=== PATIENT | male | born 1940 | race Caucasian/White ===

== ENCOUNTER → 2017-08-20 | Outpatient (CLI) | payer OTHER ==
[~2017-08-20] MED LIST: GADOBUTROL 7.5 MMOL/7.5 ML PFS ONE
== END | disposition home or self-care (01) ==
LOC: RAD 17:12
PROVIDERS: ATTEND Family Medicine
DX: I61.2 Nontraumatic intracerebral hemorrhage in hemisphere, unspecified (principal); D49.6 Neoplasm of unspecified behavior of brain
CPT/HCPCS: 70553; A9585

== ENCOUNTER 2017-08-22 11:04 | Inpatient (IN) | payer OTHER ==
[~2017-08-22] VITALS: Ht 167.6 cm; Wt 67.1 kg
[2017-08-22] MEDS ORDERED: SODIUM CHLORIDE 0.9% 1,000 ML IV ONE (11:21)
[2017-08-22] MEDS ORDERED: SODIUM CHLORIDE FLUSH 10ML SYR IVF ONE (11:30)
[2017-08-22] MEDS ORDERED: OMEP-110 PO (11:46)
[2017-08-22] MEDS ORDERED: GABA600T2 PO (11:46)
[2017-08-22] MEDS ORDERED: APIX5TAB PO (11:46)
[2017-08-22] MEDS ORDERED: METO25TA35 PO (11:46)
[2017-08-22] MEDS ORDERED: METO10TA2 PO (11:46)
[2017-08-22] MEDS ORDERED: PROP150T2 PO (11:59)
[2017-08-22] MEDS ORDERED: ROPI0.2537 PO (11:59)
[2017-08-22] MEDS ORDERED: ATOR-2 PO (11:59)
[2017-08-22] MEDS ORDERED: BACL20TA PO (12:00)
[2017-08-22] MEDS ORDERED: CARB25TA2 PO (12:00)
[2017-08-22] MEDS ORDERED: AMAN100C7 PO (12:00)
[2017-08-22] MEDS ORDERED: FINA5TAB4 PO (12:00)
[2017-08-22] MEDS ORDERED: TERA1CAP3 PO (12:00)
[2017-08-22 12:12] LABS: BASOPHILS # (AUTO) 0.02 x10^3/uL (0-0.1); BASOPHILS % (AUTO) 0 % (0-1); EOSINOPHILS % (AUTO) 1 % (1-7); LYMPHOCYTES # (AUTO) 1.11 x10^3/uL (1-3.4); LYMPHOCYTES % (AUTO) 15 % (22-44); MD NO; MEAN CORPUSCULAR HEMOGLOBIN 29.7 pg (27.5-34.5); MEAN CORPUSCULAR VOLUME 89.9 fL (81-97); MEAN PLATELET VOLUME 8.7 fL (7.4-10.4); MONOCYTES # (AUTO) 0.58 x10^3/uL (0.2-0.8); MONOCYTES % (AUTO) 8 % (2-9); NEUTROPHILS # (AUTO) 5.59 x10^3/uL (1.8-6.8); NEUTROPHILS % (AUTO) 76 % (42-75); PLATELET COUNT 185 x10^3/uL (130-400); RED BLOOD COUNT 4.15 x10^6/uL (4.38-5.82); RED CELL DISTRIBUTION WIDTH 14.6 % (9.4-14.8)
[2017-08-22 12:22] LABS: ALBUMIN 3.6 g/dL (3.4-5.0); ANION GAP 6 mmol/L (5-15); CALCIUM 8.8 mg/dL (8.5-10.1); CHLORIDE 113 mmol/L (98-107)
[2017-08-22] MEDS ORDERED: CARBIDOPA/LEVODOPA 25 MG/100 MG TABLET PO ONE (12:30)
[2017-08-22 12:43] LABS: ACETONE, SERUM Trace (10mg/dL) mg/dL (Negative)
[2017-08-22 12:50] LABS: % IRON SATURATION 28 % (20-55); ALKALINE PHOSPHATASE 92 U/L (45-117); BILIRUBIN,TOTAL 1.7 mg/dL (0.2-1.0); CREATININE 1.16 mg/dL (0.7-1.3); FOLATE LEVEL 12.4 ng/mL (3.1-17.5); IRON LEVEL 76 mcg/dL (65-175); T4 (THYROXINE) 14.8 mcg/dL (4.5-12.1); THYROID STIMULATING HORMONE 0.737 mIU/L (0.358-3.740); TOTAL IRON BINDING CAPACITY 269 mcg/dL (250-450); TOTAL PROTEIN 7.1 g/dL (6.4-8.2)
[2017-08-22 13:14] LABS: ALANINE AMINOTRANSFERASE < 6 U/L (12-78)
[2017-08-22 14:00] VITALS: BP 130/87
[2017-08-22] MEDS ORDERED: ACETAMINOPHEN 325 MG TABLET PO PRN (14:30)
[2017-08-22] MEDS ORDERED: HYDROcodone/APAP 5/325 TABLET PO PRN (14:30)
[2017-08-22] MEDS ORDERED: morphine SULFATE 10 MG/ML, 1ML IVPush PRN (14:30)
[2017-08-22] MEDS ORDERED: hydrALAzine 20 MG/ML, 1ML IVPush PRN (14:30)
[2017-08-22] MEDS ORDERED: ONDANSETRON 2MG/ML, 2ML IVPush PRN (14:30)
[2017-08-22] MEDS ORDERED: CARBIDOPA 50 MG PO SCH (16:00)
[2017-08-22] MEDS ORDERED: GADOBUTROL 7.5 MMOL/7.5 ML PFS ONE (16:20)
[2017-08-22] MEDS: BACLOFEN 10 MG TABLET PO SCH ×2 (17:30→20:59)
[2017-08-22] MEDS: GABAPENTIN 300 MG CAPSULE PO SCH ×2 (17:30→21:00)
[2017-08-22] MEDS: SODIUM CHLORIDE 0.9% 1,000 ML IV SCH (17:30)
[2017-08-22] MEDS ORDERED: CARB1TAB44 PO (18:12)
[2017-08-22] MEDS: ROPINIROLE 0.25MG TABLET PO SCH ×2 (18:34→21:15)
[2017-08-22 19:38] LABS: MICROSCOPIC NOT IND
[2017-08-22 19:50] LABS: CULTURE INDICATED? NO
[2017-08-22 20:03] VITALS: BP 118/76
[2017-08-22 20:31] VITALS: BP 130/87
[2017-08-22] MEDS: CARBIDOPA/LEVODOPA CR 50 MG/200 MG TABLET PO SCH ×2 (20:58→21:07)
[2017-08-22] MEDS: METOPROLOL TARTRATE 25 MG TABLET PO SCH (20:59)
[2017-08-22] MEDS: APIXABAN 5 MG TABLET PO SCH (20:59)
[2017-08-22] MEDS: ATORVASTATIN 40 MG TABLET PO SCH (20:59)
[2017-08-22] MEDS: AMANTADINE 100 MG CAPSULE PO SCH (21:00)
[2017-08-22] MEDS: PROPAFENONE 150 MG TABLET PO SCH (21:00)
[2017-08-22] MEDS: OMEPRAZOLE 20 MG CAPSULE.DR PO SCH (21:00)
[2017-08-22 23:07] LABS: TROPONIN I < 0.015 ng/mL (0.000-0.045)
[2017-08-23 00:21] VITALS: BP 123/82
[2017-08-23] MEDS: SODIUM CHLORIDE 0.9% 1,000 ML IV SCH ×2 (04:07→14:40)
[2017-08-23] MEDS: BACLOFEN 10 MG TABLET PO SCH ×4 (04:10→22:19)
[2017-08-23] MEDS: CARBIDOPA/LEVODOPA CR 50 MG/200 MG TABLET PO SCH ×5 (04:10→22:17)
[2017-08-23 05:34] LABS: BASOPHILS # (AUTO) 0.01 x10^3/uL (0-0.1); BASOPHILS % (AUTO) 0 % (0-1); EOSINOPHILS % (AUTO) 3 % (1-7); LYMPHOCYTES # (AUTO) 1.35 x10^3/uL (1-3.4); LYMPHOCYTES % (AUTO) 21 % (22-44); MD NO; MEAN CORPUSCULAR HEMOGLOBIN 30.1 pg (27.5-34.5); MEAN CORPUSCULAR HGB CONC 33.7 g/dL (33.2-36.2); MEAN CORPUSCULAR VOLUME 89.3 fL (81-97); MEAN PLATELET VOLUME 8.8 fL (7.4-10.4); MONOCYTES # (AUTO) 0.68 x10^3/uL (0.2-0.8); MONOCYTES % (AUTO) 11 % (2-9); NEUTROPHILS # (AUTO) 4.09 x10^3/uL (1.8-6.8); NEUTROPHILS % (AUTO) 65 % (42-75); PLATELET COUNT 168 x10^3/uL (130-400); RED BLOOD COUNT 3.68 x10^6/uL (4.38-5.82); RED CELL DISTRIBUTION WIDTH 14.4 % (9.4-14.8)
[2017-08-23 05:42] LABS: ANION GAP 5 mmol/L (5-15); CALCIUM 8.2 mg/dL (8.5-10.1); CHLORIDE 115 mmol/L (98-107)
[2017-08-23 05:48] LABS: ALKALINE PHOSPHATASE 81 U/L (45-117); BILIRUBIN,TOTAL 1.9 mg/dL (0.2-1.0); CREATININE 0.87 mg/dL (0.7-1.3); TOTAL PROTEIN 5.8 g/dL (6.4-8.2); TROPONIN I < 0.015 ng/mL (0.000-0.045)
[2017-08-23 05:51] LABS: ALANINE AMINOTRANSFERASE < 6 U/L (12-78)
[2017-08-23] MEDS ORDERED: LEVOTHYROXINE 25 MCG TABLET PO SCH (06:00)
[2017-08-23 07:29] VITALS: BP 147/91
[2017-08-23] MEDS: APIXABAN 5 MG TABLET PO SCH ×2 (08:27→22:18)
[2017-08-23] MEDS: GABAPENTIN 300 MG CAPSULE PO SCH ×3 (08:27→22:18)
[2017-08-23] MEDS: TERAZOSIN 1MG CAPSULE PO SCH (08:27)
[2017-08-23] MEDS: OMEPRAZOLE 20 MG CAPSULE.DR PO SCH ×2 (08:28→22:18)
[2017-08-23] MEDS: ROPINIROLE 0.25MG TABLET PO SCH ×3 (08:28→22:19)
[2017-08-23] MEDS: AMANTADINE 100 MG CAPSULE PO SCH ×2 (08:28→22:18)
[2017-08-23] MEDS: PROPAFENONE 150 MG TABLET PO SCH ×2 (08:29→22:19)
[2017-08-23] MEDS: FINASTERIDE 5 MG TABLET PO SCH (08:29)
[2017-08-23] MEDS: METOPROLOL TARTRATE 25 MG TABLET PO SCH ×2 (08:30→22:18)
[2017-08-23 12:16] LABS: ANION GAP 7 mmol/L (5-15); CALCIUM 8.1 mg/dL (8.5-10.1); CHLORIDE 113 mmol/L (98-107)
[2017-08-23 12:17] LABS: CREATININE 0.92 mg/dL (0.7-1.3)
[2017-08-23 14:16] VITALS: BP 140/87
[2017-08-23] MEDS ORDERED: CARBIDOPA/LEVODOPA 25 MG/100 MG TABLET PO SCH (14:27)
[2017-08-23 19:27] VITALS: BP 113/74
[2017-08-23] MEDS: ATORVASTATIN 40 MG TABLET PO SCH (22:20)
[2017-08-24 03:52] VITALS: BP 141/91
[2017-08-24 04:55] LABS: ALBUMIN 2.9 g/dL (3.4-5.0); ANION GAP 8 mmol/L (5-15); CALCIUM 8.3 mg/dL (8.5-10.1); CHLORIDE 113 mmol/L (98-107)
[2017-08-24 04:59] LABS: ALKALINE PHOSPHATASE 84 U/L (45-117); CREATININE 0.89 mg/dL (0.7-1.3); TOTAL PROTEIN 6.1 g/dL (6.4-8.2)
[2017-08-24] MEDS: BACLOFEN 10 MG TABLET PO SCH ×2 (05:02→09:34)
[2017-08-24] MEDS: CARBIDOPA/LEVODOPA CR 50 MG/200 MG TABLET PO SCH ×2 (05:02→09:34)
[2017-08-24 05:10] LABS: ALANINE AMINOTRANSFERASE < 6 U/L (12-78)
[2017-08-24 08:00] VITALS: BP 125/86
[2017-08-24] MEDS: FINASTERIDE 5 MG TABLET PO SCH (09:00)
[2017-08-24] MEDS: ROPINIROLE 0.25MG TABLET PO SCH (09:33)
[2017-08-24] MEDS: GABAPENTIN 300 MG CAPSULE PO SCH (09:33)
[2017-08-24] MEDS: TERAZOSIN 1MG CAPSULE PO SCH (09:33)
[2017-08-24] MEDS: AMANTADINE 100 MG CAPSULE PO SCH (09:33)
[2017-08-24] MEDS: OMEPRAZOLE 20 MG CAPSULE.DR PO SCH (09:33)
[2017-08-24] MEDS: METOPROLOL TARTRATE 25 MG TABLET PO SCH (09:34)
[2017-08-24] MEDS: APIXABAN 5 MG TABLET PO SCH (09:34)
[2017-08-24] MEDS: PROPAFENONE 150 MG TABLET PO SCH (09:34)
[2017-08-24] MEDS: SODIUM CHLORIDE 0.9% 1,000 ML IV SCH ×2 (09:36)
[2017-08-24 09:44] VITALS: BP 127/82
[2017-08-24 09:46] VITALS: BP 126/84
[2017-08-24 09:51] VITALS: BP 117/80
== END 2017-08-24 14:14 | disposition home health service (06) | DRG 56 ==
LOC: ED 11:35 → EDIP 13:27 → 4EST 15:06
PROVIDERS: ADMIT Internal Medicine; ATTEND Internal Medicine
DX: G20 Parkinson's disease (principal); Q28.3 Other malformations of cerebral vessels; G93.41 Metabolic encephalopathy; G81.11 Spastic hemiplegia affecting right dominant side; I48.91 Unspecified atrial fibrillation; E78.5 Hyperlipidemia, unspecified; D18.00 Hemangioma unspecified site; R47.01 Aphasia; E86.0 Dehydration; G25.81 Restless legs syndrome; I10 Essential (primary) hypertension; K21.9 Gastro-esophageal reflux disease without esophagitis; N40.0 Benign prostatic hyperplasia without lower urinary tract symptoms; Z80.0 Family history of malignant neoplasm of digestive organs
CPT/HCPCS: 36415; 70553; 71045; 80048; 80053; 81003; 82010; 82607; 82728; 82746; 83540; 83550; 83605; 83735; 84100; 84436; 84443; 84481; 84484; 85025; 93005; 93306; A9585; J7030

== ENCOUNTER 2017-11-05 11:14 | Emergency (ER) | payer OTHER ==
[~2017-11-05] VITALS: Ht 188 cm; Wt 67.0 kg
[~2017-11-05 11:14] MED LIST changes: +AMAN100C7 PO; +APIX5TAB PO; +ATOR-2 PO; +ATOR40TA78 PO; +BACL20TA PO; +CARB1TAB22 PO; +CARB1TAB44 PO; +CARB25TA2 PO; +FINA5TAB4 PO; +GABA600T2 PO; -GADOBUTROL 7.5 MMOL/7.5 ML PFS ONE; +HYDR-3241 PO; +LEVO500T8 PO; +METO10TA2 PO; +METO25TA35 PO; +METO25TA91 PO; +OMEP-110 PO; +PROP150T2 PO; +ROPI0.2537 PO; +TERA1CAP3 PO
[2017-11-05] MEDS ORDERED: CITA20TA5 PO (12:13)
[2017-11-05] MEDS ORDERED: ACET650S21 PO (12:13)
[2017-11-05] MEDS ORDERED: AMAN100C7 PEG (12:13)
[2017-11-05] MEDS ORDERED: QUET25TA5 PO (12:13)
[2017-11-05] MEDS ORDERED: CEFD300C37 PO (12:13)
[2017-11-05] MEDS ORDERED: TAMS0.4C2 PO (12:13)
[2017-11-05 14:56] VITALS: BP 133/89
== END 2017-11-05 16:09 | disposition home or self-care (01) ==
LOC: ED 14:49
DX: Z46.59 Encounter for fitting and adjustment of other gastrointestinal appliance and device (principal); G20 Parkinson's disease; I10 Essential (primary) hypertension
CPT/HCPCS: 43760; 75984; 99284; C1729; 99283